=== PATIENT | male | born 1960 | race Caucasian/White ===

== ENCOUNTER 2018-01-18 07:34 | Day surgery (SDC) | payer OTHER ==
[~2018-01-18 07:34] MED LIST: PROPOFOL INJ 200 MG/20 ML VIAL IV ONE
[2018-01-18] MEDS ORDERED: PROPOFOL INJ 200 MG/20 ML VIAL IV ONE (08:17)
[2018-01-18 09:09] VITALS: BP 151/93
--- NOTE | 2018-01-18 14:29 | Operative Report ---
Operative Report DATE OF SURGERY: 01/18/18 Operative Report: The risks, benefits and alternatives of the procedure including risks of bleeding, perforation requiring surgery are explained to the patient in detail and informed consent was obtained. The patient was taken back to the endoscopy suite and placed in the left, lateral decubital position. Timeout was called. Propofol medications administered. A rectal examination is done which did not reveal any masses, tears or fissures. An Olympus endoscope is inserted into the patient's rectum. The scope was then carefully advanced all the way to the cecum. The cecum was identified by the usual anatomical landmarks including the ileocecal valve as well as the appendiceal office. Photodocumentation was obtained. The scope was then sequentially pulled back via the various segments of the colon including the ascending colon, hepatic flexure, transverse colon, splenic flexure, descending colon and finally into the rectosigmoid portions of the colon. Retroflexion maneuver was performed. The risks benefits and alternatives of the procedure explained to the patient in detail and informed consent is obtained.A GIF Olympus video scope was inserted into the patient's mouth and hypopharynx, the esophagus is identified intubated and insufflated, the scope was then advanced through the esophagus stomach and duodenum, retroflexion maneuver is done ,the esophagus stomach and first and second portions of the duodenum examined PREOPERATIVE DIAGNOSIS: Personal history of polyps. Dysphagia POSTOPERATIVE DIAGNOSIS: A dilated esophagus with some residual material at the distal esophagus. Slight resistance with passage of the scope through the EG junction. Possible Schatzki's ring status post biopsy. Gastritis, duodenitis status post biopsy. Diverticulosis. Internal hemorrhoids. Colon polyp that was removed via biopsy forceps. Right-sided colon inflammation status post biopsy OPERATION: Colonoscopy with biopsy. EGD with biopsy SURGEON: TAY RODNEY ANESTHESIA: LMAC TISSUE REMOVED OR ALTERED: As noted above. COMPLICATIONS: None. ESTIMATED BLOOD LOSS: None. INTRAOPERATIVE FINDINGS: As noted above. Patient may have achalasia. May need manometry study. PROCEDURE: Patient tolerated the procedure well. No immediate postprocedure complications are noted. Patient discharged in good condition. Discharge date 01/18/2018. Discharge diet: Regular. Discharge activity: Regular. 2-3 week follow-up to discuss findings. We will await pathology. As noted above with further studies and other recommendations. Patient is instructed to call the office or proceed to the emergency room should have any further problems or questions.
== END 2018-01-18 09:05 | disposition home or self-care (01) ==
LOC: END 07:34
PROVIDERS: ATTEND Internal Medicine Gastroenterology
DX: Z12.11 Encounter for screening for malignant neoplasm of colon (principal); D12.6 Benign neoplasm of colon, unspecified; K64.8 Other hemorrhoids; K52.9 Noninfective gastroenteritis and colitis, unspecified; Z86.010 Personal history of colon polyps; Z80.0 Family history of malignant neoplasm of digestive organs; K20.9 Esophagitis, unspecified; K29.70 Gastritis, unspecified, without bleeding; K29.80 Duodenitis without bleeding; K21.9 Gastro-esophageal reflux disease without esophagitis; I10 Essential (primary) hypertension; E78.00 Pure hypercholesterolemia, unspecified; E78.5 Hyperlipidemia, unspecified
CPT/HCPCS: 43239; 45380; 813; 88305; 88342; J2704